=== PATIENT | female | born 1970 | race Caucasian/White ===

== ENCOUNTER 2018-09-24 14:57 | Emergency (ER) | payer OTHER ==
--- NOTE | 2018-09-24 16:06 | UC ---
Throat Pain/Nasal Rk HPI - HPI Summary HPI Summary: Patient presents concerned has a sinus infection. Patient states she's had sinus pressure postnasal drip and a cough for approximately 3 weeks. Patient states she started to feel better over the weekend but now has severe sinus pressure and postnasal drip again. Patient states ears feel congested. Patient denies shortness of breath. No fevers or chills. Patient take Singulair, Zyrtec-D, and humidify the room or she sleeps. Patient states she just started humidifying last week. Patient denies rash. No headache. Patient 's last sinus infection was approximately 2 years ago and states this feels similar. Patient reports frontal sinus pressure it's worse when she leans forward and improves in the shower. Pt's medications reviewed this visit - History of Current Complaint Chief Complaint: UCRespiratory Stated Complaint: SINUS Time Seen by Provider: 09/24/18 16:06 Hx Obtained From: Patient Hx Last Menstrual Period: 06/2018 ?: No Onset/Duration: Gradual Onset Severity: Moderate Pain Intensity: 0 - Allergies/Home Medications Allergies/Adverse Reactions: Allergies Allergy/AdvReac Type Severity Reaction Status Date / Time No Known Allergies Allergy Verified 09/24/18 15:28 Home Medications: Home Medications Cetirizine HCl/Pseudoephedrine [Zyrtec-D Tablet] 1 each PO DAILY 09/24/18 [ History Confirmed 09/24/18] Ibuprofen TAB* [Advil TAB*] 200 mg PO Q6H PRN 09/24/18 [History Confirmed ] Montelukast Sodium TAB* [Singulair TAB*] 10 mg PO DAILY 09/24/18 [History Confirmed 09/24/18] PMH/Surg Hx/FS Hx/Imm Hx Previously Healthy: Yes - Surgical History Surgical History: None - Social History Alcohol Use: None Substance Use Type: None Smoking Status (MU): Never Smoked Tobacco Review of Systems All Other Systems Reviewed And Are Negative: Yes Eyes: Positive: Negative ENT: Positive: Ear Ache - R>L pressure, Nasal Discharge, Sinus Congestion, Sinus Pain/Tenderness Physical Exam - Summary Physical Exam Summary: Vital Signs Reviewed: Yes A+Ox3, no distress Eyes: Conjunctiva Clear, RM. EOM intact and full ENT: Hearing grossly normal scant fluid rightTM,left TM wnl turbinates inflammed and boggy, + thick PND mild TTP max sinuses R>L, mmoist, uvula midline, no exudate, no erythema Neck: Positive: Supple Respiratory: Positive: No respiratory distress, No accessory muscle use + CTA throughout no w/r Cardiovascular: RRR nl s1, s2 no m/r CBT <2 sec abd soft + BS nt/nd no guarding, no distension Musculoskeletal Exam: MELGAR x 4 without difficulty Strength Intact, ROM Intact Neurological: Positive: Alert, + sensation throughout Psychological: Positive: Normal Response To Family Skin: Positive: no rash, no ecchymosis Triage Information Reviewed: Yes Vital Signs: Initial Vital Signs Temp 97.6 F 09/24/18 15: Pulse 83 09/24/18 15:26 Resp 16 09/24/18 15:26 BP 153/65 09/24/18 15:26 Pulse Ox 100 09/24/18 15:26 Throat Pain/Nasal Course/Dx - Course Course Of Treatment: Patient presents with sinus pressure and pain. Patient with postnasal drip. Patient states her symptoms had improved but go worse and of the weekend. On exam patient with fluid in her right ear. Patient with thick postnasal drip. Patient lungs are clear vital signs are stable. We'll prescribe amoxicillin. Recommend patient continue Zyrtec-D. Patient requests a refill her senior which was written. Saline nasal spray. Return precautions per patient comfortable in agreement with plan. - Differential Dx/Diagnosis Provider Diagnosis: Acute rhinosinusitis Discharge - Sign-Out/Discharge Documenting (check all that apply): Patient Departure All imaging exams completed and their final reports reviewed: No Studies - Discharge Plan Condition: Stable Disposition: HOME Prescriptions: Amoxicillin PO (*) [Amoxicillin 500 MG CAP*] 500 mg PO Q12H #20 cap Fluconazole [Diflucan 150 MG (NF)] 150 mg PO ONCE PRN #1 tab PRN Reason: vaginal yeast infection Montelukast Sodium TAB* [Singulair TAB*] 10 mg PO BEDTIME #30 tab Patient Education Materials: Rhinosinusitis (ED) Referrals: No Primary Care Phys,NOPCP [Primary Care Provider] - Additional Instructions: - Stay well hydrated. Drink plenty of non-alcoholic, non-caffinated beverages. - Alternate ibuprofen (Advil, Motrin) 600mg and Tylenol every 3 hours for pain or fever. Take with food. Do NOT take for more than 4-5 days. - These infections are spread by secretions - do NOT share eating or drinking utensils - clean items you share with other people such as cell phones, computer mouse, TV remote, computer tablets,etc. Once you have been antibiotics for 2 days, change your toothbrush and your pillowcase. - get plenty of restful sleep - humidify the air in the room where you sleep - boil water, run a hot steam shower, vaporizer, cups of water by heat register - okay to take over the counter decongestant and cough medication - use saline nasal spray as recommended - you have been given a 1 time dose treatment for yeast infection - okay to take as needed - contact your doctor or return with questions or concerns - Billing Disposition and Condition Condition: STABLE Disposition: Home
== END 2018-09-24 16:24 | disposition home or self-care (01) ==
LOC: UCCORT 14:57
DX: J01.90 Acute sinusitis, unspecified (principal)
CPT/HCPCS: 99202; G0463